=== PATIENT | female | born 1960 | race Caucasian/White ===

== ENCOUNTER 2018-03-03 10:16 | Emergency (ER) | payer BC ==
[2018-03-03 10:23] VITALS: BP 104/78
[2018-03-03] MEDS ORDERED: OXYCODONE/APAP 5/325 TAB PO ONE (11:03)
--- NOTE | 2018-03-03 11:06 | EDPHY ---
H & P Time Seen by Provider: 03/03/18 10:39 HPI/ROS: This patient had oral surgery 4 days prior to arrival with dental extraction times 3-2 a right 1 of the left followed by suture placement an a bone graft on the right. She reports a of 10 pain despite ibuprofen Tylenol taken on a regular basis. She also reports compliance with clindamycin that was prescribed 300 mg three times daily for 7 days. She contacted her oral surgeon Dr. Da Silva regarding these complaints and when she explain that the pain was in her jaw he apparently thought she might have muscle source pain and prescribed cyclobenzaprine yesterday without relief. She called him again today but has not heard back and came into the emergency department for further evaluation seeking relief from the pain. ROS: Constitutional: No fevers or chills HEENT: She reports diminishing swelling to the right more than left mandible since the surgery. Neuro: No numbness tingling weakness. She does report a bifrontal headache that is 7/10 in intensity similar to what she is called migraines in the past though she does not have other typical migraine symptoms-no photophobia, no worsening with movement. No throbbing component to the headache. No associated neuro symptoms or visual changes. Pulmonary: No complaints new line cardiovascular: No complaints new line GI: No nausea vomiting 7 point ROS is otherwise negative. Past Medical/Surgical History: No history of drug abuse/addiction Sjogren's disease Smoking Status: Never smoked Physical Exam: Physical Exam Vital signs are normal. General: No acute distress HEENT: Nose: Clear bilaterally. No sinus tenderness to percussion. Ears: External canals and tympanic membranes are clear with no erythema or abnormal findings bilaterally. Oropharynx: Patient has dental extractions right sided molars and 1 left-sided premolar with sutures present. There is no significant gingival swelling and no fluctuance but there is exquisite tenderness to these areas. Other dentition is without significant abnormality. No pharyngeal erythema is present. No dysphonia, drooling or stridor. No submental swelling Eyes: Pupils equal and react to light. Extraocular motions are intact. Neck: Supple with no meningismus. No lymphadenopathy Lungs: Clear to auscultation bilaterally with no rales, rhonchi or wheeze. No respiratory distress. Cardiac: Regular rate and rhythm with no murmur gallop or rub Skin: No rash or pallor. Neuro: Alert with no focal deficits noted. Initial differential diagnosis: Postprocedure dental pain with the inadequate analgesia, periondontal infection, tension headache, doubt migraine headache Constitutional: Initial Vital Signs Temperature (C) 36.8 C 03/03/18 10:20 Heart Rate 100 03/03/18 10:20 Respiratory Rate 16 03/03/18 10:20 Blood Pressure 104/78 03/03/18 10:20 O2 Sat (%) 96 03/03/18 10:20 O2 Delivery Mode Room Air Allergies/Adverse Reactions: Penicillins Allergy (Verified 03/03/18 10:24) wheat Allergy (Severe, Uncoded 03/03/18 10:24) Itching egg Allergy (Uncoded 03/03/18 10:24) soy Allergy (Uncoded 03/03/18 10:24) Home Medications: Medication Instructions Recorded Cymbalta 60 MG (RX) 08/04/14 Amitriptyline HCl 05/02/16 Diazepam [Valium 5 MG (*)] 5 - 10 mg PO TID PRN #20 tab 05/02/16 Plaquenil 200 mg (*) 05/02/16 Valium 05/02/16 Concerta 03/03/18 Cromolyn Sodium 03/03/18 Cyclobenzaprine 03/03/18 Docusate Sodium [Colace 100 MG (*)] 100 mg PO BID PRN #20 cap 03/03/18 Levocetirizine Dihydrochloride 03/03/18 oxyCODONE/APAP 5/325 [Percocet 1 - 2 tab PO Q4-6PRN PRN #20 tab 03/03/18 5/325 (*)] MDM/Departure - MDM Medications Given: Discontinued Medications Oxycodone/Acetaminophen (Percocet 5/325) 1 tab PO EDNOW ONE Stop: 03/03/18 11:04 Last Admin: 03/03/18 11:13 Dose: 1 tab ED Course/Re-evaluation: After this patient IV hydration and treatment for headache and dental pain but she prefers or analgesics only. I considered tramadol for this patient but she is on amitriptyline with noted contraindication in the form of interaction with these 2 medications. She took ibuprofen prior to arrival in his treated here with Percocet with partial relief. She will follow up with her oral surgeon for further evaluation. Discussion: Patient with post procedural dental pain with out evidence of Eusebio's angina or other significant complications other than inadequate analgesia at this time though periodontal infection is still consideration she is on appropriate antibiotic-clindamycin and reports compliance with this. - Depart Disposition: Home, Routine, Self-Care Clinical Impression: Pain, dental Headache Qualifiers: Headache type: tension-type Headache chronicity pattern: acute headache Intractability: not intractable Qualified Code(s): G44.209 - Tension-type headache, unspecified, not intractable Condition: Good Instructions: Toothache (ED) Additional Instructions: Diagnosis: Postprocedure dental pain 2. Headache Plan: Continue your clindamycin Add on probiotics and/or yogurt Continue ibuprofen Tylenol Add Percocet as needed for pain control. No driving, alcohol or come Percocet Colace stool softener to prevent constipation while on Percocet. Follow up with her oral surgeon Return emergency department for any significant worsening despite the treatment plan Prescriptions: Docusate Sodium [Colace 100 MG (*)] 100 mg PO BID PRN #20 cap PRN Reason: Constipation oxyCODONE/APAP 5/325 [Percocet 5/325 (*)] 1 - 2 tab PO Q4-6PRN PRN #20 tab PRN Reason: Pain Referrals: Sophie Irvin MD [Primary Care Provider] - As per Instructions
== END 2018-03-03 11:15 | disposition home or self-care (01) ==
LOC: CED 10:16
DX: G89.18 Other acute postprocedural pain (principal); K08.89 Other specified disorders of teeth and supporting structures; G44.209 Tension-type headache, unspecified, not intractable